=== PATIENT | female | born 1990 | race Caucasian/White ===

== ENCOUNTER 2017-09-27 14:24 | Inpatient (IN) | payer OTHER ==
[~2017-09-27] VITALS: Ht 162.6 cm; Wt 90.7 kg
[~2017-09-27 14:24] MED LIST: HYDROXYZINE HCL25 M1 GT; SINGULAIR
[2017-09-27 14:36] LABS: URINE BILIRUBIN NEGATIVE (Negative); URINE BLOOD NEGATIVE (Negative); URINE CLARITY CLEAR; URINE COLOR YELLOW; URINE GLUCOSE-RANDOM NEGATIVE (Negative); URINE KETONES NEGATIVE (Negative); URINE LEUKOCYTES-REFLEX NEGATIVE (Negative); URINE NITRITE-REFLEX NEGATIVE (Negative); URINE PROTEIN NEGATIVE (Negative); URINE UROBILINOGEN 0.2 E.U./dl (0.2-1.0)
[2017-09-27] MEDS ORDERED: GLUCOPHAGE XR500 MG PO (14:37)
[2017-09-27] MEDS ORDERED: VYVANSE40 MG PO (14:37)
[2017-09-27 15:01] LABS: ABSOLUTE BASOPHILS 0.1 thou/uL (0.0-0.2); ABSOLUTE EOSINOPHILS 0.4 thou/uL (0.0-0.7); ABSOLUTE LYMPHOCYTES 3.6 thou/uL (0.8-5.3); ABSOLUTE MONOCYTES 0.6 thou/uL (0.0-1.2); ABSOLUTE NEUTROPHILS 5.2 thou/uL (1.6-8.1); BASOPHILS 0.6 %; EOSINOPHILS 4.4 %; HEMATOCRIT 37.8 % (37.0-47.0); HEMOGLOBIN 12.7 gm/dL (12.0-15.0); LYMPHOCYTES 36.4 %; MCH 28.7 pg (26.0-34.0); MCHC 33.5 g/dL (28.0-37.0); MCV 85.7 fL (80.0-100.0); MONOCYTES 5.9 %; MPV 9.4 fl. (7.2-11.1); NUCLEATED RBCS 0 /100WBC; PLATELET COUNT* 152 thou/uL (150-400); POLYS 52.7 %; RBC 4.41 mil/uL (4.20-5.00); RDW-CV 15.4 % (10.5-14.5); WBC 9.9 thou/uL (4.0-11.0)
[2017-09-27 15:10] LABS: CALCIUM 9.2 mg/dL (8.5-10.1); CREATININE 0.9 mg/dL (0.6-1.3); POTASSIUM 3.3 mmol/L (3.5-5.1)
[2017-09-27 15:15] LABS: ALBUMIN 3.4 g/dL (3.4-5.0); TOTAL BILIRUBIN 0.2 mg/dL (<0.1-1.0); TOTAL PROTEIN 7.5 g/dL (6.4-8.2)
[2017-09-27 16:50] LABS: AMP/METHAMP Negative (Negative); BARBITURATES Negative (Negative); BENZODIAZEPINES Negative (Negative); COCAINE Negative (Negative); METHADONE Negative (Negative); OPIATES Negative (Negative); PCP Negative (Negative); THC Negative (Negative)
[2017-09-27 18:40] VITALS: BP 124/69
--- NOTE | 2017-09-27 19:02 | NUR ---
PT UP TO ROOM 307 VIA CART. PT ORIENTED TO ROOM. VSS. CALL LIGHT WITHIN REACH
[2017-09-27 19:04] VITALS: BP 124/69
[2017-09-28 00:12] VITALS: BP 123/54
[2017-09-28 04:49] LABS: ALBUMIN 2.8 g/dL (3.4-5.0); ALKALINE PHOSPHATASE 60 U/L (46-116); ANION GAP 7 mmol/L (7-16); BUN 8 mg/dL (7-18); CALCIUM 8.5 mg/dL (8.5-10.1); CHLORIDE 109 mmol/L (98-107); CHOLESTEROL 132 mg/dL (<200); CO2 25 mmol/L (21-32); CREATININE 0.7 mg/dL (0.6-1.3); GLUCOSE 87 mg/dL (70-99); HDL CHOLESTEROL 41 mg/dL (>40); LDL CHOLESTEROL 76 mg/dL (<100); LIPASE 740 U/L (73-393); MAGNESIUM 1.9 mg/dL (1.8-2.4); POTASSIUM 3.9 mmol/L (3.5-5.1); SGOT 44 U/L (15-37); SGPT 44 U/L (30-65); SODIUM 141 mmol/L (136-145); TC:HDL 3.2 Ratio (Not establshd); TOTAL BILIRUBIN 0.4 mg/dL (<0.1-1.0); TRIGLYCERIDE 76 mg/dL (<150); VLDL 15 mg/dL (<40)
[2017-09-28 05:07] LABS: SERUM ASSESSMENT Clear
--- NOTE | 2017-09-28 06:01 | NUR ---
PT SLEPT WELL OVERNIGHT, HAS DENIED NEED FOR PAIN AND NAUSEA MEDS THIS SHIFT. K REPLACED THIS SHIFT, AM LABS DRAWN. RAC IVF INFUSING PER PUMP. HAS BEEN NPO, EXCEPT SIP WITH MEDS. AT BEDSIDE OVERNIGHT. GI TO CONSULT TODAY. ABLE TO USE CALL LITE AND MAKE NEEDS KNOWN.
[2017-09-28 07:45] VITALS: BP 115/65
--- NOTE | 2017-09-28 14:19 | NUR ---
SW met with pt and pt to complete initial assessment, introduce self, and SW role. Pt standing by window and reports feeling considerably less pain than yesterday. Pt alert, oriented, pleasant. Pt lives at home with her and does not anticipate any needs at dc. SW to continue to follow to assist with safe dc plan.
[2017-09-28 16:00] VITALS: BP 117/63
--- NOTE | 2017-09-28 16:31 | NUR ---
PATIENT NPO ALL MORNING AWAITING GI ROUND. MAXIMINO OUTSIDE INSTALLATION MACHINIST HERE THIS AFTERNOON AND OK FOR CLEAR LIQUID DIET. PATIENT TOLERATING WITHOUT DIFFICULTY. NO PAIN OR NAUSEA THIS SHIFT. IVF REMAINS INFUSING. UP AD PRESLEY AROUND ROOM. SPOUSE AT BEDSIDE.
[2017-09-28 21:33] VITALS: BP 115/79
[2017-09-29 04:16] LABS: ALBUMIN 2.8 g/dL (3.4-5.0); CALCIUM 8.8 mg/dL (8.5-10.1); CREATININE 0.8 mg/dL (0.6-1.3); MAGNESIUM 1.9 mg/dL (1.8-2.4); POTASSIUM 4.2 mmol/L (3.5-5.1); TOTAL BILIRUBIN 0.2 mg/dL (<0.1-1.0); TOTAL PROTEIN 5.9 g/dL (6.4-8.2)
--- NOTE | 2017-09-29 05:28 | NUR ---
PT SLEPT WELL OVERNIGHT. UP AD PRESLEY TO BR WITHOUT DIFFICULTY. CO SLIGHT NAUSEA 2100 AND ZOFRAN GIVEN WITH GOOD RESULTS, ALSO CO INTERMITTENT MILD L SIDE ABD PAIN BUT DENIED NEED FOR PAIN MED. NO FURTHER COMPLAINTS OVERNIGHT. NPO SINCE MIDNIGHT FOR PIPIDA SCAN TODAY. RAC IVF INFUSING PER PUMP. HS ACCUCHECK 82. AM LABS DRAWN. ABLE TO USE CALL LITE AND MAKE NEEDS KNOWN. AT BEDSIDE. CALL LITE IN EASY REACH.
[2017-09-29 08:05] VITALS: BP 104/49
[2017-09-29] MEDS ORDERED: PHENERGAN 25 MG25 M1 PO (10:47)
[2017-09-29 11:31] VITALS: BP 104/49
--- NOTE | 2017-09-29 12:56 | NUR ---
PATIENT TO HAVE PIPIDA SCAN DONE TODAY. NUC MED UNABLE TO PERFORM TODAY BUT CAN DO TOMORROW. DR. MINAYA AND MAXIMINO FROM GI NOTIFIED AND OK FOR PATIENT TO DISCHARGE AND HAVE TESTING DONE TOMORROW. SCHEDULING NOTIFIED AND PATIENT TO HAVE PIPIDA AT 0715, NPO AFTER MIDNIGHT. PATIENT VERBALIZES UNDERSTANDING. IV DC'D. VERALIZES UNDERSTANDING OF PAPERWORK AND SCRIPT. PATIENT AMBULATED OUT WITH STAFF.
--- NOTE | 2017-10-07 15:14 | CON ---
[address] [address] CONSULTATION Name: DARI RIVERA Room: [address] IN M.R.#: [id number] Admission: 09/27/17 Attend Phys: Kerwin Allred MD Discharge: 09/29/17 Date of : 89 Report #: [id number] THIS REPORT FOR: //name// CC: ESTELA Allred DICTATED BY: Deisy Grey [facility] DATE OF SERVICE: 09/28/2017 Please note at the time of this dictation, the patient was seen and physically examined by myself. REASON FOR CONSULTATION: Pancreatitis. HISTORY OF PRESENT ILLNESS: This is a pleasant 26-year-old female who presented to the Emergency Room with having abdominal discomfort, which radiated into her back. She states this has been going on off and on for the last several weeks. She states it felt like she had been punched in her stomach to the point that it got significantly worse, prompting her to come to the Emergency Room for evaluation. She did have a little bit of nausea, but no vomiting. Her bowels have been normal; however, the patient did have a miscarriage approximately 4 weeks ago, which is her second one, last one being in 2016 and at that time, she was given misoprostol or Cytotec to help facilitate her termination. She has also been doing a Keto type diet and eating a lot of high fatty foods over the last several weeks as well. She denies taking any other new medications. She did restart her metformin and does take Vyvanse for ADHD. She states she has never had anything like this happen to her before as well. Currently, at the time of this consultation the patient is pain free. She has no further discomfort. No nausea or vomiting at this time. ALLERGIES: ALBUTEROL. MEDICATIONS: From home include Glucophage and Vyvanse. PAST MEDICAL HISTORY: She has a history of asthma and eczema. She has got some PCOS and insulin resistance. PAST SURGICAL HISTORY: Negative. FAMILY HISTORY: Maternal grandmother, colon cancer at age 50. SOCIAL HISTORY: She is , denies any tobacco use, alcohol only on special occasions and denies [place] [address] CONSULTATION Name: MIGUELDARI M Room: [address]#: [id number] Admission: 09/27/17 Attend Phys: Kerwin lAlred MD Discharge: 09/29/17 Date of : 89 Report #: [id number] REVIEW OF SYSTEMS: Twelve-point review of systems is essentially negative except what is mentioned in the HPI. PHYSICAL EXAMINATION: VITAL SIGNS: Temperature 36.8, pulse 81, respirations 18, blood pressure 115/65. HEART: Regular rate and rhythm. LUNGS: Clear. ABDOMEN: Soft, positive bowel sounds in all 4 quadrants with no masses or tenderness noted. LABORATORY DATA: Sodium 141, potassium 3.9, chloride 109, CO2 25, BUN is 8, creatinine 0.7, GFR 102, glucose is 87. Hemoglobin 12.7, hematocrit 37.8, white count is 9.9, platelets 152. Ultrasound was completely normal. CT of the abdomen and pelvis negative for any GI abnormality. It did show some mesenteric adenitis and on admission, her lipase was 2540 and is currently 740 at this time. IMPRESSION: 1. Abdominal pain, resolved. 2. Elevated lipase, questionable etiology. 3. Recent miscarriage and given misoprostol. 4. Overweight. 5. Family history of colon cancer, maternal grandmother, age 50. PLAN: 1. We will continue her fluids to make sure that she tolerates her diet. 2. Clear liquid diet and advance as tolerated. 3. Lipid profile is pending. 4. May need to consider an EUS as an outpatient for further workup regarding her elevated lipase. Thank you for allowing us to participate in this patient's care. Please do not hesitate to call with any questions in regard to this consult. ADDENDUM I have seen and examined the patient and agree with plan that has been outlined by our nurse practitioner, Deisy Grey. It is certainly possible that she has microlithiasis that could be responsible for her possible pancreatitis. For this reason, we will proceed with CCK and PIPIDA scan tomorrow. Depending on the results of the same and her ability to eat and drink, she may be able to go home thereafter. I have reviewed her CT scan, laboratory test, and her medication list and do not feel that she has severe pancreatitis noted at this time. There is also a possibility she has sphincter of Oddi dysfunction. [address] [address] CONSULTATION Name: DARI RIVERA Room: [address] IN M.R.#: [id number] Admission: 09/27/17 Attend Phys: Kerwin Allred MD Discharge: 09/29/17 Date of : 89 Report #: [id number] DISCUSSION: At the present time, we will await the results of her PIPIDA scan. <ELECTRONICALLY SIGNED> By: Milan Freeman DO 10/07/17 1514 [id number] Freeman DO /nt
--- NOTE | 2017-10-07 15:14 | CON ---
[address] [address] CONSULTATION Name: MIGUELDARI Zoila Room: [address] IN M.R.#: [id number] Admission: 09/27/17 Attend Phys: Kerwin Allred MD Discharge: 09/29/17 Date of : 89 Report #: [id number] THIS REPORT FOR: //name// CC: Michelle Allred MD DATE OF SERVICE: 09/28/2017 ADDENDUM This is an addendum to job #[id number] REFERRING PHYSICIAN: Dr. Kerwin Allred. I have seen and examined the patient and agree with plan that has been outlined by our nurse practitioner, Deisy Grey. It is certainly possible that she has microlithiasis that could be responsible for her possible pancreatitis. For this reason, we will proceed with CCK and PIPIDA scan tomorrow. Depending on the results of the same and her ability to eat and drink, she may be able to go home thereafter. I have reviewed her CT scan, laboratory test, and her medication list and do not feel that she has severe pancreatitis noted at this time. There is also a possibility she has sphincter of Oddi dysfunction. DISCUSSION: At the present time, we will await the results of her PIPIDA scan. <ELECTRONICALLY SIGNED> By: Milan Freeman DO 10/07/17 1514 [id number] Freeman DO /kareem
== END 2017-09-29 13:01 | disposition home or self-care (01) | DRG 439 ==
LOC: M.ERS 14:24 → M.3W 16:40 → M.TBA-ER 16:40 → M.3W 18:46
PROVIDERS: Nurse Practitioner Family; Physician Assistant; ADMIT Internal Medicine
DX: K85.00 Idiopathic acute pancreatitis without necrosis or infection (principal); E44.1 Mild protein-calorie malnutrition; E28.2 Polycystic ovarian syndrome; E66.9 Obesity, unspecified; E87.6 Hypokalemia; J45.909 Unspecified asthma, uncomplicated; Z80.0 Family history of malignant neoplasm of digestive organs; Z88.8 Allergy status to other drugs, medicaments and biological substances; Z79.899 Other long term (current) drug therapy; Z79.4 Long term (current) use of insulin; Z68.34 Body mass index [BMI] 34.0-34.9, adult

== ENCOUNTER → 2017-09-30 | Outpatient (CLI) | payer OTHER ==
[~2017-09-30] MED LIST changes: +GLUCOPHAGE XR500 MG PO; +PHENERGAN 25 MG25 M1 PO; +VYVANSE40 MG PO
== END ==
LOC: M.NUC 07:13
DX: R10.11 Right upper quadrant pain (principal); R93.2 Abnormal findings on diagnostic imaging of liver and biliary tract